=== PATIENT | female | born 1995 | race Caucasian/White ===

== ENCOUNTER 2018-03-11 11:15 | Outpatient (CLI) | payer OTHER ==
[2018-03-11 11:50] LABS: BASOPHILS # (AUTO) 0.05 x10^3/uL (0-0.3); BASOPHILS % (AUTO) 1 % (0-1); EOSINOPHILS # (AUTO) 0.11 x10^3/uL (0-0.8); EOSINOPHILS % (AUTO) 1 % (1-7); LYMPHOCYTES # (AUTO) 3.27 x10^3/uL (1-6.1); LYMPHOCYTES % (AUTO) 32 % (22-44); MD NO; MEAN CORPUSCULAR HEMOGLOBIN 26.8 pg (27.0-34.8); MEAN CORPUSCULAR HGB CONC 33.1 g/dL (32.4-35.8); MEAN CORPUSCULAR VOLUME 80.8 fL (80-100); MEAN PLATELET VOLUME 8.3 fL (7.4-10.4); MONOCYTES # (AUTO) 1.02 x10^3/uL (0-1.4); MONOCYTES % (AUTO) 10 % (2-9); NEUTROPHILS # (AUTO) 5.85 x10^3/uL (1.8-8.0); NEUTROPHILS % (AUTO) 57 % (42-75); PLATELET COUNT 375 x10^3/uL (130-400); RED BLOOD COUNT 4.29 x10^6/uL (3.82-5.3); RED CELL DISTRIBUTION WIDTH 15.3 % (9.6-15.2)
[2018-03-11 12:03] LABS: ALANINE AMINOTRANSFERASE 17 U/L (12-78); ALBUMIN 2.5 g/dL (3.4-5.0); ANION GAP 7 mmol/L (5-15); CALCIUM 8.8 mg/dL (8.5-10.1); CHLORIDE 109 mmol/L (98-107)
[2018-03-11 12:04] LABS: MICROSCOPIC INDICATED
[2018-03-11 12:05] LABS: ALKALINE PHOSPHATASE 146 U/L (45-117); BILIRUBIN,TOTAL 0.3 mg/dL (0.2-1.0)
[2018-03-11 12:11] VITALS: BP 127/81
== END 2018-03-11 13:44 | disposition home or self-care (01) ==
LOC: LDOP 11:15
PROVIDERS: ATTEND Obstetrics & Gynecology Maternal & Fetal Medicine
DX: O14.93 Unspecified pre-eclampsia, third trimester (principal); O26.893 Other specified pregnancy related conditions, third trimester; R03.0 Elevated blood-pressure reading, without diagnosis of hypertension; Z3A.38 38 weeks gestation of pregnancy
CPT/HCPCS: 36415; 59025; 80053; 81001; 82570; 84156; 84550; 85025; 99211; G0463

== ENCOUNTER 2018-03-11 20:00 | Inpatient (IN) | payer OTHER ==
[~2018-03-11] VITALS: Ht 170.2 cm; Wt 97.7 kg
[2018-03-11 20:07] VITALS: BP 126/75
[2018-03-11] MEDS: D5%-LACTATED RINGERS 1,000 ML IV SCH (20:26)
[2018-03-11] MEDS ORDERED: OXYTOCIN 30U/ 0.9% NaCL 500ML 500 ML IV ONE (20:26)
[2018-03-11] MEDS ORDERED: NEWBORN KIT ONE (20:28)
[2018-03-11] MEDS ORDERED: TERBUTALINE 1 MG/ML, 1ML SQ PRN (20:30)
[2018-03-11] MEDS ORDERED: ALUMINUM/MAG/SIMETHICONE 30 ML UDC PO PRN (20:30)
[2018-03-11] MEDS ORDERED: ONDANSETRON 2MG/ML, 2ML IVPush PRN (20:30)
[2018-03-11] MEDS ORDERED: TERBUTALINE 1 MG/ML, 1ML IVPush PRN ×2 (20:30)
[2018-03-11] MEDS ORDERED: FENTANYL PF 100 MCG/2ML IV PRN (20:30)
[2018-03-11] MEDS ORDERED: CALCIUM CARBONATE 500 MG TAB.CHEW PO PRN (20:30)
[2018-03-11 20:46] LABS: BASOPHILS # (AUTO) 0.06 x10^3/uL (0-0.3); BASOPHILS % (AUTO) 1 % (0-1); EOSINOPHILS # (AUTO) 0.07 x10^3/uL (0-0.8); EOSINOPHILS % (AUTO) 1 % (1-7); LYMPHOCYTES # (AUTO) 3.14 x10^3/uL (1-6.1); LYMPHOCYTES % (AUTO) 34 % (22-44); MD NO; MEAN CORPUSCULAR HEMOGLOBIN 26.3 pg (27.0-34.8); MEAN CORPUSCULAR HGB CONC 32.7 g/dL (32.4-35.8); MEAN CORPUSCULAR VOLUME 80.6 fL (80-100); MEAN PLATELET VOLUME 8.1 fL (7.4-10.4); MONOCYTES # (AUTO) 0.69 x10^3/uL (0-1.4); MONOCYTES % (AUTO) 7 % (2-9); NEUTROPHILS # (AUTO) 5.37 x10^3/uL (1.8-8.0); NEUTROPHILS % (AUTO) 58 % (42-75); PLATELET COUNT 398 x10^3/uL (130-400); RED BLOOD COUNT 4.33 x10^6/uL (3.82-5.3); RED CELL DISTRIBUTION WIDTH 15.9 % (9.6-15.2)
[2018-03-11] MEDS ORDERED: OXYTOCIN 30U/ 0.9% NaCL 500ML 500 ML IV PRN (21:09)
[2018-03-11] MEDS ORDERED: OXYTOCIN 30U/ 0.9% NaCL 500ML 500 ML ONE (21:53)
[2018-03-12] MEDS ORDERED: ACETAMINOPHEN 325 MG TABLET ONE (00:43)
[2018-03-12] MEDS ORDERED: ACETAMINOPHEN 325 MG TABLET PO PRN (01:00)
[2018-03-12] MEDS: LACTATED RINGERS 1,000 ML IV SCH ×3 (02:17→12:26)
[2018-03-12] MEDS ORDERED: FENTANYL PF 100 MCG/2ML ONE ×3 (03:01→06:11)
[2018-03-12] MEDS: FENTANYL PF 100 MCG/2ML IVPush PRN ×3 (03:02→06:14)
[2018-03-12] MEDS: D5%-LACTATED RINGERS 1,000 ML IV SCH ×2 (04:26→12:26)
[2018-03-12] MEDS ORDERED: FENTANYL/BUPIV./NS/PF 250 ML EPIDCONT ONE ×3 (07:07→07:42)
[2018-03-12] MEDS ORDERED: BUPIVACAINE 0.25% ONE ×2 (07:30→07:36)
[2018-03-12] MEDS ORDERED: LIDOCAINE 1%, 20ML ONE (07:36)
[2018-03-12] MEDS ORDERED: LIDOCAINE/PF 1.5%-EPI 1:200K, 30ML ONE (07:36)
[2018-03-12] MEDS ORDERED: LACTATED RINGERS 1,000 ML IV SCH (08:40)
[2018-03-12] MEDS ORDERED: FENTANYL/BUPIV./NS/PF 250 ML EPIDCONT SCH (08:40)
[2018-03-12] MEDS ORDERED: DIPHENHYDRAMINE 50 MG/ML, 1ML IVPush PRN (09:00)
[2018-03-12] MEDS ORDERED: NALOXONE 0.4 MG/ML, 1ML IVPush PRN (09:00)
[2018-03-12] MEDS ORDERED: LACTATED RINGERS 1,000 ML IVBOLUS PRN (09:00)
[2018-03-12] MEDS ORDERED: EPHEDRINE 50 MG/ML, 1ML IVPush PRN (09:00)
[2018-03-12] MEDS ORDERED: ONDANSETRON 2MG/ML, 2ML IVPush PRN (09:00)
[2018-03-12] MEDS: OXYTOCIN 30U/ 0.9% NaCL 500ML 500 ML IV SCH ×2 (12:29→22:29)
[2018-03-12] MEDS ORDERED: DOCUSATE 100 MG CAPSULE PO PRN (12:30)
[2018-03-12] MEDS ORDERED: OXYcodone/APAP 5/325MG TABLET PO PRN (12:30)
[2018-03-12] MEDS ORDERED: IBUPROFEN 600 MG TABLET PO PRN (12:30)
[2018-03-12] MEDS ORDERED: MISOPROSTOL 200 MCG TABLET PR PRN (12:30)
[2018-03-12] MEDS ORDERED: OXYTOCIN 30U/ 0.9% NaCL 500ML 500 ML ONE (12:50)
[2018-03-12 13:06] VITALS: BP 125/60
[2018-03-12 16:00] VITALS: BP 122/73
[2018-03-12 19:30] VITALS: BP 112/74
[2018-03-12 20:20] LABS: BASOPHILS # (AUTO) 0.02 x10^3/uL (0-0.3); BASOPHILS % (AUTO) 0 % (0-1); EOSINOPHILS # (AUTO) 0.04 x10^3/uL (0-0.8); EOSINOPHILS % (AUTO) 0 % (1-7); LYMPHOCYTES # (AUTO) 3.07 x10^3/uL (1-6.1); LYMPHOCYTES % (AUTO) 19 % (22-44); MD NO; MEAN CORPUSCULAR HEMOGLOBIN 26.5 pg (27.0-34.8); MEAN CORPUSCULAR VOLUME 80.4 fL (80-100); MONOCYTES # (AUTO) 0.35 x10^3/uL (0-1.4); MONOCYTES % (AUTO) 2 % (2-9); NEUTROPHILS # (AUTO) 12.91 x10^3/uL (1.8-8.0); NEUTROPHILS % (AUTO) 79 % (42-75); PLATELET COUNT 358 x10^3/uL (130-400); RED BLOOD COUNT 4.51 x10^6/uL (3.82-5.3); RED CELL DISTRIBUTION WIDTH 15.8 % (9.6-15.2)
[2018-03-13 00:15] VITALS: BP 112/71
[2018-03-13 07:20] VITALS: BP 112/74
[2018-03-13] MEDS: OXYTOCIN 30U/ 0.9% NaCL 500ML 500 ML IV SCH (08:29)
[2018-03-13] MEDS ORDERED: PRENATAL VIT/IRON/FA 1 EACH TABLET PO SCH (09:00)
[2018-03-13] MEDS ORDERED: IBUP-1222 PO (11:40)
[2018-03-13 11:55] VITALS: BP 110/71
== END 2018-03-13 13:40 | disposition home or self-care (01) | DRG 775 ==
LOC: LDOP 20:00 → LDIP 20:27 → 2NW 03-12 14:22
PROVIDERS: ADMIT Obstetrics & Gynecology Maternal & Fetal Medicine; ATTEND Obstetrics & Gynecology Maternal & Fetal Medicine
PROC: 3E033VJ Introduction of Other Hormone into Peripheral Vein, Percutaneous Approach (ICD-10-PCS; 2018-03-11)
PROC: 10E0XZZ Delivery of Products of Conception, External Approach (ICD-10-PCS; principal; 2018-03-12)
PROC: 0HQ9XZZ Repair Perineum Skin, External Approach (ICD-10-PCS; 2018-03-12)
PROC: 3E0R3BZ Introduction of Anesthetic Agent into Spinal Canal, Percutaneous Approach (ICD-10-PCS; 2018-03-12)
PROC: 00HU33Z Insertion of Infusion Device into Spinal Canal, Percutaneous Approach (ICD-10-PCS; 2018-03-12)
DX: O76 Abnormality in fetal heart rate and rhythm complicating labor and delivery (principal); O69.81X0 Labor and delivery complicated by cord around neck, without compression, not applicable or unspecified; Z37.0 Single live birth; Z3A.38 38 weeks gestation of pregnancy; O70.0 First degree perineal laceration during delivery
CPT/HCPCS: 36415; 85025; 86850; 86900; 89060; J3010; J3490; J2590; J7120; Q0114

== ENCOUNTER 2019-12-11 01:12 | Emergency (ER) | payer OTHER ==
[~2019-12-11] VITALS: Ht 170.2 cm; Wt 76.0 kg
[~2019-12-11 01:12] MED LIST: IBUP-1222 PO
[2019-12-11] MEDS ORDERED: KETOROLAC 30 MG/1 ML IM ONE (01:30)
--- NOTE | 2019-12-11 01:34 | NUR ---
PT. PRESENTS WITH RUQ ABDOMINAL PAIN THAT STARTED AROUND 1999 LAST NIGHT AFTER EATING PASTA. REPORTS PAIN WRAPS AROUND TO HER SHOULDER BLADES. LMP 11/20. NO ABDOMINAL SURGERIES. OTHERWISE HEALTHY.
[2019-12-11] MEDS ORDERED: KETOROLAC 30 MG/1 ML ONE (01:38)
--- NOTE | 2019-12-11 01:42 | NUR ---
LABS DRAWN, UA SENT, PT TO US.
[2019-12-11 01:47] LABS: MICROSCOPIC NOT IND
[2019-12-11 01:47] LABS: BASOPHILS # (AUTO) 0.04 x10^3/uL (0-0.1); BASOPHILS % (AUTO) 0 % (0-1); EOSINOPHILS # (AUTO) 0.15 x10^3/uL (0-0.4); EOSINOPHILS % (AUTO) 1 % (1-7); LYMPHOCYTES # (AUTO) 4.31 x10^3/uL (1-3.4); LYMPHOCYTES % (AUTO) 38 % (22-44); MD NO; MEAN CORPUSCULAR HEMOGLOBIN 29.4 pg (27.0-34.8); MEAN CORPUSCULAR VOLUME 89.1 fL (80-100); MONOCYTES # (AUTO) 0.87 x10^3/uL (0.2-0.8); MONOCYTES % (AUTO) 8 % (2-9); NEUTROPHILS # (AUTO) 5.92 x10^3/uL (1.8-6.8); NEUTROPHILS % (AUTO) 52 % (42-75); PLATELET COUNT 361 x10^3/uL (130-400); RED BLOOD COUNT 4.41 x10^6/uL (3.82-5.3); RED CELL DISTRIBUTION WIDTH 13.6 % (9.6-15.2)
[2019-12-11 01:53] LABS: CULTURE INDICATED? NO
[2019-12-11 01:58] LABS: ALANINE AMINOTRANSFERASE 13 U/L (12-78); ALBUMIN 3.5 g/dL (3.4-5.0); ANION GAP 6 mmol/L (5-15); CALCIUM 8.7 mg/dL (8.5-10.1); CHLORIDE 107 mmol/L (98-107); CREATININE 0.72 mg/dL (0.55-1.02)
[2019-12-11 02:03] LABS: ALKALINE PHOSPHATASE 63 U/L (45-117); BILIRUBIN,TOTAL 0.3 mg/dL (0.2-1.0); TOTAL PROTEIN 7.2 g/dL (6.4-8.2)
--- NOTE | 2019-12-11 02:57 | NUR ---
PATIENT DENIES PAIN AT THIS TIME.
[2019-12-11 03:20] VITALS: BP 116/78
== END 2019-12-11 03:22 | disposition home or self-care (01) ==
LOC: ED 03:09
DX: K80.20 Calculus of gallbladder without cholecystitis without obstruction (principal)
CPT/HCPCS: 36415; 76700; 80053; 81003; 83690; 84702; 85025; 96372; 99284; J1885

== ENCOUNTER 2021-01-30 17:57 | Outpatient (CLI) | payer SELFPAY ==
[~2021-01-30] VITALS: Ht 170.2 cm; Wt 87.2 kg
[2021-01-30 18:34] VITALS: BP 115/68
[2021-01-30 18:56] LABS: MICROSCOPIC INDICATED
[2021-01-30] MEDS ORDERED: PREN1TAB10 PO (19:18)
== END 2021-01-30 19:30 | disposition home or self-care (01) ==
LOC: LDOP 17:57
PROVIDERS: ATTEND Obstetrics & Gynecology Maternal & Fetal Medicine
DX: O26.893 Other specified pregnancy related conditions, third trimester (principal); R10.9 Unspecified abdominal pain; Z3A.36 36 weeks gestation of pregnancy
CPT/HCPCS: 59025; 81001; 87086

== ENCOUNTER 2021-02-13 00:05 | Outpatient (CLI) | payer OTHER ==
[~2021-02-13] VITALS: Ht 170.2 cm; Wt 88.2 kg
[~2021-02-13 00:05] MED LIST changes: +PREN1TAB10 PO
[2021-02-13 00:29] VITALS: BP 117/77
== END 2021-02-13 01:40 | disposition home or self-care (01) ==
LOC: LDOP 00:05
PROVIDERS: ATTEND Obstetrics & Gynecology Maternal & Fetal Medicine
DX: O42.92 Full-term premature rupture of membranes, unspecified as to length of time between rupture and onset of labor (principal); Z3A.38 38 weeks gestation of pregnancy
CPT/HCPCS: 89060; 99211; G0463; Q0114

== ENCOUNTER 2021-02-18 17:15 | Inpatient (IN) | payer OTHER ==
[~2021-02-18] VITALS: Ht 170.2 cm; Wt 89.0 kg
[2021-02-18 21:50] VITALS: BP 121/72
[2021-02-18] MEDS ORDERED: FENTANYL PF 100 MCG/2ML IV PRN (22:00)
[2021-02-18] MEDS ORDERED: TERBUTALINE 1 MG/ML, 1ML IVPush PRN (22:00)
[2021-02-18] MEDS ORDERED: ONDANSETRON 2MG/ML, 2ML IVPush PRN (22:00)
[2021-02-18] MEDS ORDERED: CALCIUM CARBONATE 500 MG TAB.CHEW PO PRN (22:00)
[2021-02-18] MEDS ORDERED: MISOPROSTOL 25 MCG TABLET VG PRN (22:00)
[2021-02-18] MEDS ORDERED: FENTANYL PF 100 MCG/2ML IVPush PRN (22:00)
[2021-02-18] MEDS ORDERED: TERBUTALINE 1 MG/ML, 1ML SQ PRN (22:00)
[2021-02-18] MEDS: D5%-LACTATED RINGERS 1,000 ML IV SCH (22:00)
[2021-02-18] MEDS ORDERED: OXYTOCIN 30U/ 0.9% NaCL 500ML 500 ML ONE (22:02)
[2021-02-18] MEDS ORDERED: LIDOCAINE 1%, 20ML ONE (22:02)
[2021-02-18] MEDS ORDERED: MISOPROSTOL 25 MCG TABLET ONE (22:02)
[2021-02-18] MEDS ORDERED: MISOPROSTOL 200 MCG TABLET ONE (22:02)
[2021-02-18] MEDS ORDERED: NEWBORN KIT ONE (22:02)
[2021-02-18] MEDS: LACTATED RINGERS 1,000 ML IV SCH (22:15)
[2021-02-18 22:34] LABS: BASOPHILS % (AUTO) 1 % (0-1); EOSINOPHILS % (AUTO) 1 % (1-7); LYMPHOCYTES % (AUTO) 31 % (22-44); MEAN CORPUSCULAR HEMOGLOBIN 25.3 pg (27.0-34.8); MEAN CORPUSCULAR HGB CONC 32.7 g/dL (32.4-35.8); MEAN PLATELET VOLUME 7.2 fL (7.4-10.4); MONOCYTES % (AUTO) 7 % (2-9); NEUTROPHILS % (AUTO) 61 % (42-75); PLATELET COUNT 407 x10^3/uL (130-400); RED BLOOD COUNT 3.96 x10^6/uL (3.82-5.3); RED CELL DISTRIBUTION WIDTH 16.9 % (9.6-15.2)
[2021-02-19] MEDS ORDERED: FENTANYL/BUPIV./NS/PF 250 ML EPIDCONT ONE (04:50)
[2021-02-19] MEDS ORDERED: BUPIVACAINE 0.25% ONE (05:29)
[2021-02-19] MEDS: LACTATED RINGERS 1,000 ML IV SCH ×6 (06:00→22:30)
[2021-02-19] MEDS ORDERED: EPHEDRINE 50 MG/ML, 1ML IVPush PRN (06:00)
[2021-02-19] MEDS: D5%-LACTATED RINGERS 1,000 ML IV SCH ×2 (06:00→22:31)
[2021-02-19] MEDS: FENTANYL/BUPIV./NS/PF 250 ML EPIDCONT SCH (06:00)
[2021-02-19] MEDS ORDERED: LACTATED RINGERS 1,000 ML IVBOLUS PRN (06:00)
[2021-02-19] MEDS ORDERED: OXYTOCIN 30U/ 0.9% NaCL 500ML 500 ML IV PRN (07:30)
[2021-02-19] MEDS ORDERED: SIMETHICONE 80 MG CHEW TAB PO PRN (09:00)
[2021-02-19] MEDS ORDERED: DIPH,PERTUSS(ACELL),TET VAC/PF NC IM-VACC PRN (09:00)
[2021-02-19] MEDS ORDERED: METHYLERGONOVINE 0.2 MG/ML IM PRN (09:00)
[2021-02-19] MEDS ORDERED: MISOPROSTOL 200 MCG TABLET PR PRN (09:00)
[2021-02-19] MEDS: PRENATAL VIT/IRON/FA 1 EACH TABLET PO SCH (09:00)
[2021-02-19] MEDS ORDERED: ACETAMINOPHEN 325 MG TABLET PO PRN ×2 (09:00)
[2021-02-19] MEDS ORDERED: CARBOPROST TROMETHAMINE 250 MCG/ML, 1ML IM PRN (09:00)
[2021-02-19] MEDS ORDERED: DOCUSATE 100 MG CAPSULE PO PRN (09:00)
[2021-02-19] MEDS ORDERED: OXYcodone/APAP 5/325MG TABLET PO PRN ×2 (09:00)
[2021-02-19] MEDS ORDERED: OXYTOCIN 30U/ 0.9% NaCL 500ML 500 ML IV ONE (09:30)
[2021-02-19] MEDS: OXYTOCIN 30U/ 0.9% NaCL 500ML 500 ML IV SCH ×2 (09:36→19:00)
[2021-02-19 11:38] VITALS: BP 112/67
[2021-02-19] MEDS: IBUPROFEN 600 MG TABLET PO PRN ×2 (11:45→18:06)
[2021-02-19 15:40] VITALS: BP 94/56
[2021-02-19 17:29] LABS: BASOPHILS % (AUTO) 0 % (0-1); EOSINOPHILS % (AUTO) 1 % (1-7); LYMPHOCYTES % (AUTO) 26 % (22-44); MEAN CORPUSCULAR HEMOGLOBIN 24.9 pg (27.0-34.8); MEAN CORPUSCULAR HGB CONC 32.2 g/dL (32.4-35.8); MEAN PLATELET VOLUME 7.4 fL (7.4-10.4); MONOCYTES % (AUTO) 6 % (2-9); NEUTROPHILS % (AUTO) 66 % (42-75); PLATELET COUNT 370 x10^3/uL (130-400); RED BLOOD COUNT 4.22 x10^6/uL (3.82-5.3); RED CELL DISTRIBUTION WIDTH 16.8 % (9.6-15.2)
[2021-02-19 21:15] VITALS: BP 108/69
[2021-02-20 00:36] VITALS: BP 109/67
[2021-02-20] MEDS: IBUPROFEN 600 MG TABLET PO PRN (01:24)
[2021-02-20 04:13] VITALS: BP 99/58
[2021-02-20] MEDS: OXYTOCIN 30U/ 0.9% NaCL 500ML 500 ML IV SCH (05:00)
[2021-02-20] MEDS: FENTANYL/BUPIV./NS/PF 250 ML EPIDCONT SCH (05:26)
[2021-02-20] MEDS: D5%-LACTATED RINGERS 1,000 ML IV SCH (05:26)
[2021-02-20] MEDS: LACTATED RINGERS 1,000 ML IV SCH ×2 (05:26)
[2021-02-20 08:45] VITALS: BP 109/69
[2021-02-20] MEDS ORDERED: IBUP-1222 PO (09:40)
[2021-02-20] MEDS: PRENATAL VIT/IRON/FA 1 EACH TABLET PO SCH (10:34)
== END 2021-02-20 13:40 | disposition home or self-care (01) | DRG 807 ==
LOC: LDIP 21:53 → 2NW 02-19 10:53
PROVIDERS: ADMIT Obstetrics & Gynecology Maternal & Fetal Medicine; ATTEND Obstetrics & Gynecology Maternal & Fetal Medicine
PROC: 10E0XZZ Delivery of Products of Conception, External Approach (ICD-10-PCS; principal; 2021-02-19)
PROC: 3E0R3BZ Introduction of Anesthetic Agent into Spinal Canal, Percutaneous Approach (ICD-10-PCS; 2021-02-19)
PROC: 00HU33Z Insertion of Infusion Device into Spinal Canal, Percutaneous Approach (ICD-10-PCS; 2021-02-19)
PROC: 3E0DXGC Introduction of Other Therapeutic Substance into Mouth and Pharynx, External Approach (ICD-10-PCS; 2021-02-19)
DX: O76 Abnormality in fetal heart rate and rhythm complicating labor and delivery (principal); Z37.0 Single live birth; Z3A.39 39 weeks gestation of pregnancy; Z20.822 Contact with and (suspected) exposure to COVID-19; Z23 Encounter for immunization
CPT/HCPCS: 36415; 85025; 86592; 86850; 86900; 87635; G0378; J2590; J7120